=== PATIENT | male | born 1990 | race Caucasian/White ===

== ENCOUNTER 2020-08-17 15:56 | Observation (INO) | payer OTHER ==
[~2020-08-17] VITALS: Ht 182.9 cm; Wt 136.1 kg
[2020-08-17 16:09] VITALS: BP 135/86
[2020-08-17 16:11] LABS: ABSOLUTE BASOPHILS 0.1 thou/uL (0.0-0.2); ABSOLUTE EOSINOPHILS 0.2 thou/uL (0.0-0.7); ABSOLUTE LYMPHOCYTES 2.5 thou/uL (0.8-5.3); BASOPHILS 0.8 %; EOSINOPHILS 2.6 %; HEMATOCRIT 45.2 % (42.0-52.0); HEMOGLOBIN 15.6 gm/dL (14.0-18.0); LYMPHOCYTES 32.8 %; MCH 30.8 pg (26.0-34.0); MCHC 34.6 g/dL (28.0-37.0); MCV 89.2 fL (80.0-100.0); MONOCYTES 12.4 %; MPV 9.1 fl. (7.2-11.1); NUCLEATED RBCS 0 /100WBC; PLATELET COUNT* 239 thou/uL (150-400); POLYS 51.4 %; RBC 5.07 mil/uL (4.50-6.00); RDW-CV 13.2 % (10.5-14.5); WBC 7.7 thou/uL (4.0-11.0)
[2020-08-17] MEDS ORDERED: LEVO-T50 MCG PO (16:14)
[2020-08-17] MEDS ORDERED: ZYRTEC10 M5 PO (16:14)
[2020-08-17 16:28] LABS: CALCIUM 8.6 mg/dL (8.5-10.1); CREATININE 1.1 mg/dL (0.6-1.3); POTASSIUM 3.4 mmol/L (3.5-5.1)
[2020-08-17 16:32] LABS: ALBUMIN 3.8 g/dL (3.4-5.0); MAGNESIUM 1.9 mg/dL (1.8-2.4); TOTAL BILIRUBIN 0.3 mg/dL (<0.1-1.0); TOTAL PROTEIN 7.2 g/dL (6.4-8.2)
[2020-08-17 19:09] LABS: URINE BILIRUBIN NEGATIVE (Negative); URINE BLOOD TRACE (Negative); URINE CLARITY CLEAR; URINE COLOR YELLOW; URINE GLUCOSE-RANDOM NEGATIVE (Negative); URINE KETONES NEGATIVE (Negative); URINE LEUKOCYTES-REFLEX NEGATIVE (Negative); URINE NITRITE-REFLEX NEGATIVE (Negative); URINE PROTEIN NEGATIVE (Negative); URINE SPECIFIC GRAVITY 1.025 (1.005-1.030); URINE UROBILINOGEN 0.2 E.U./dl (0.2-1.0)
[2020-08-17 19:48] LABS: AMP/METHAMP Negative (Negative); BARBITURATES Negative (Negative); BENZODIAZEPINES Negative (Negative); COCAINE Negative (Negative); METHADONE Negative (Negative); OPIATES Negative (Negative); PCP Negative (Negative); THC Negative (Negative)
[2020-08-17 20:50] VITALS: BP 117/64
[2020-08-17 21:12] VITALS: BP 107/46
[2020-08-17 23:50] VITALS: BP 113/64
[2020-08-18 04:18] VITALS: BP 100/48
[2020-08-18 08:17] VITALS: BP 128/47
[2020-08-18 08:46] LABS: ANION GAP 4 mmol/L (7-16); BUN 14 mg/dL (7-18); CALCIUM 8.4 mg/dL (8.5-10.1); CHLORIDE 108 mmol/L (98-107); CO2 29 mmol/L (21-32); CREATININE 0.9 mg/dL (0.6-1.3); GLUCOSE 90 mg/dL (70-99); POTASSIUM 3.9 mmol/L (3.5-5.1); SODIUM 141 mmol/L (136-145); TROPONIN-I LEVEL <0.06 ng/mL (<0.06)
--- NOTE | 2020-08-18 10:02 | EKG ---
[place] [address] ELECTROCARDIOGRAM REPORT Name: ENRIQUE PAEZ Room: [address] ADM IN ..#: [id number] Admission: 08/17/20 Attend Phys: Angela Ladd, Discharge: Date of : 86 Date of Service: 08/17/20 1602 Report #: [id number] THIS REPORT FOR: //name// [facility] ED Test Date: 2020-08-17 Test Time: 16:02:34 Pat Name: ENRIQUE PAEZ Department: Room: [facility] Gender: M Filling Operator: SLOAN : 1990 Requested By: Tab Jacobsen Order Number: [id number] MD: Mello Kc Measurements Intervals Jansen Rate: 79 P: 14 MO: 135 QRS: 1 QRSD: 105 T: 17 QT: 363 QTc: 417 Interpretive Statements Sinus rhythm Baseline wander in lead(s) V4 No previous ECG available for comparison Electronically Signed On 08-18-2020 10:02:25 CDT by Mello Kc [email or web address] <ELECTRONICALLY SIGNED> By: Mello Kc MD, FACC 08/18/20 1002 1602 1602 Mello Kc MD, [facility] /EPI
--- NOTE | 2020-08-18 11:59 | 2DMMODE ---
[place] [address] 2 D/M-MODE ECHOCARDIOGRAM Name: ENRIQUE PAEZ Room: [address] Teddy#: [id number] Admission: 08/17/20 Attend Phys: Angela Ladd, Discharge: Date of : 86 Date of Service: 08/18/20 1159 Report #: [id number] THIS REPORT FOR: cc: Damian Page MD, Gary E. MD Liston, Michael J. MD [facility] ~ APPROVED REPORT Study performed: 08/18/2020 08:56:18 EXAM: Comprehensive 2D, Doppler, and color-flow Echocardiogram Patient Location: In-Patient Room #: [facility] Status: routine BSA: 2.53 HR: 53 bpm BP: 128/47 mmHg Rhythm: NSR Other Information Study Quality: Good Indications Bradycardia Chest Pain 2D Dimensions IVSd: 11.16 (7-11mm) LVOT Diam: 21.37 (18-24mm) LVDd: 50.22 mm PWd: 10.32 (7-11mm) Ascending Ao: 28.85 (22-36mm) LVDs: 35.14 (25-40mm) Aortic Root: 31.32 mm Volumes Left Atrial Volume (Systole) LA ESV Index: 24.80 mL/m2 Aortic Valve AoV Peak Baldemar.: 1.17 m/s AO Peak Gr.: 5.43 mmHg LVOT Max P.54 mmHg AO Mean Gr.: 2.95 mmHg LVOT Mean P.06 mmHg LVOT Max V: 1.07 m/s AO V2 VTI: 24.08 cm LVOT Mean V: 0.65 m/s WALLY (VTI): 3.35 cm2 LVOT V1 VTI: 22.50 [place] [address] 2 D/M-MODE ECHOCARDIOGRAM Name: ENRIQUE PAEZ Room: [address] Teddy#: [id number] Admission: 08/17/20 Attend Phys: Angela Ladd, Discharge: Date of : 86 Date of Service: 08/18/20 1159 Report #: [id number] Mitral Valve E/A Ratio: 1.40 MV Decel. Time: 167.83 ms MV E Max Baldemar.: 0.80 m/s MV PHT: 48.67 ms MVA (PHT): 4.52 cm2 TDI E/Lateral E': 4.44 E/Medial E': 6.67 Medial E' Baldemar.: 0.12 m/s Lateral E' Baldemar.: 0.18 m/s Pulmonary Valve PV Peak Baldemar.: 1.05 m/s PV Peak Gr.: 4.42 mmHg Tricuspid Valve RAP Estimate: 5.00 mmHg TR Peak Gr.: 20.20 mmHg RVSP: 25.00 mmHg PA Pressure: 25.00 mmHg Left Ventricle The left ventricle is normal size. There is normal LV segmental wall motion. There is normal left ventricular wall thickness. Left ventricular systolic function is normal. LVEF is 55-60%. The left ventricular diastolic function is normal. Right Ventricle The right ventricle is normal size. The right ventricular systolic function is normal. Atria The left atrium size is normal. The right atrium size is normal. Aortic Valve The aortic valve is normal in structure. No aortic regurgitation is present. There is no aortic valvular stenosis. Mitral Valve The mitral valve is normal in structure. Trace mitral regurgitation. No evidence of mitral valve stenosis. Tricuspid Valve The tricuspid valve is normal in structure. Mild [place] [address] 2 D/M-MODE ECHOCARDIOGRAM Name: ENRIQUE PAEZ Room: [address]#: [id number] Admission: 08/17/20 Attend Phys: Angela Ladd, Discharge: Date of : 86 Date of Service: 08/18/20 1159 Report #: [id number] Pulmonic Valve The pulmonary valve is normal in structure. There is no pulmonic valvular regurgitation. Great Vessels The aortic root is normal in size. IVC is not visualized. Pericardium There is no pericardial effusion. <Conclusion> The left ventricle is normal size. There is normal left ventricular wall thickness. Left ventricular systolic function is normal. LVEF is 55-60%. The left ventricular diastolic function is normal. Trace mitral regurgitation. Mild tricuspid regurgitation. <ELECTRONICALLY SIGNED> By: Mello Kc MD, FACC 08/18/20 1159 1159 1159 Mello Kc MD, FACC /INF
[2020-08-18 12:00] VITALS: BP 113/66
[2020-08-18 17:10] VITALS: BP 113/66
[2020-08-19 02:06] LABS: GLYCOHEMOGLOBIN (HGB A1C) 5.4 % (4.8-5.6)
--- NOTE | 2020-08-19 17:21 | TST ---
[place] [address] TREADMILL STRESS TEST Name: ENRIQUE PAEZ Room: [address] Teddy#: [id number] Admission: 08/17/20 Attend Phys: Angela Ladd, Discharge: 08/18/20 Date of : 86 Date of Service: 08/18/20 1538 Report #: [id number] THIS REPORT FOR: cc: Damian Page MD, Gary E. MD Liston, Michael J. MD [facility] ~ DOC #: [id number] cc: Joan Truong NP, MD Mello Song MD DATE OF SERVICE: 08/18/2020 STANDARD EMILIANO PROTOCOL EXERCISE STRESS TEST INDICATIONS: Chest pain and bradycardia. CARDIAC HISTORY: None. CARDIAC RISK FACTORS: None. CARDIAC MEDICATIONS: None. The patient exercised per standard Emiliano protocol for a total of 8 minutes and 58 seconds. The patient achieved 93% of the age-predicted maximum heart rate and an energy expenditure equivalent to 10.16 METS. The resting blood pressure was 117/84 mmHg with a resting heart rate of 62 beats per minute. At peak stress, the blood pressure was 215/67 mmHg with a peak stress heart rate of 176 beats per minute. Recovery blood pressure was 129/79. Recovery heart rate was 94 beats per minute. The baseline 12-lead EKG shows sinus rhythm without significant ST segment or T-wave abnormality. EKGs obtained during and post-exercise shows sinus rhythm and sinus tachycardia with no significant ST segment changes when compared to baseline. There were no stress-induced arrhythmias. Exercise was stopped due to achievement of target heart rate. The patient denied any chest discomfort with exercise. IMPRESSION: 1. Electrocardiographic response: Nonischemic. 2. Clinical response: Nonischemic. CONCLUSION: This standard Emiliano protocol exercise stress test shows no EKG or clinical evidence to suggest stress-induced ischemia. This [place] [address] TREADMILL STRESS TEST Name: ENRIQUE PAEZ [address] [id number] Admission: 08/17/20 Attend Phys: Angela Ladd, Discharge: 08/18/20 Date of : 86 Date of Service: 08/18/20 1538 Report #: [id number] Mello Kc MD MJL/JIAN <ELECTRONICALLY SIGNED> By: Mello Kc MD, [facility] 08/19/20 1721 1538 2210 Mello Kc MD, FACC /nt
== END 2020-08-18 17:30 | disposition home or self-care (01) ==
LOC: M.ERS 15:56 → M.TBA-ER 17:23 → M.2W 17:23
PROVIDERS: Emergency Medicine Emergency Medical Services; ADMIT Internal Medicine; ATTEND Internal Medicine
DX: R00.1 Bradycardia, unspecified (principal); R07.89 Other chest pain; J30.2 Other seasonal allergic rhinitis; E03.9 Hypothyroidism, unspecified; Z20.822 Contact with and (suspected) exposure to COVID-19; E66.9 Obesity, unspecified; Z68.41 Body mass index [BMI] 40.0-44.9, adult; Z79.899 Other long term (current) drug therapy